=== PATIENT | male | born 1945 | race Caucasian/White ===

== ENCOUNTER 2019-08-13 05:52 | Day surgery (SDC) | payer MEDICARE ==
[~2019-08-13] VITALS: Ht 180.3 cm; Wt 109.8 kg
[2019-08-13] VITALS (18 sets, daily range): BP systolic 120–160; BP diastolic 61–73
[~2019-08-13 05:52] MED LIST: AMLO10TA PO; ASPI-1264 PO; CHOL500050 PO; EZET1TAB33 PO; FISH1CAP15 PO; FLO0.4C PO; GABA-532 PO; GLUC1CAP17 PO; LEVO125T PO; METO100T7 PO; MULT-1085 PO; NAPR-996 PO; NIA500ERT PO; NITR0.4T48 SL; OMEP40CA13 PO; TRAZ-251 PO
[2019-08-13] MEDS ORDERED: normal saline 1,000 ML IV SCH (06:20)
[2019-08-13] MEDS ORDERED: diphenhydrAMINE 25mg capsule PO PRN (06:20)
[2019-08-13] MEDS ORDERED: LORazepam 0.5 MG tablet PO PRN (06:20)
[2019-08-13] MEDS ORDERED: GLUC100017 PO (06:22)
[2019-08-13 06:41] LABS: BASOPHILS # (AUTO) 0.1 X10'3 (0-0.2); EOSINOPHILS # (AUTO) 0.3 X10'3 (0-0.9); EOSINOPHILS % (AUTO) 4.1 % (0-6); HEMATOCRIT 44.8 % (42.0-52.0); LYMPHOCYTES # (AUTO) 2.1 X10'3 (1.1-4.8); LYMPHOCYTES % (AUTO) 29.3 % (21-51); MEAN CORPUSCULAR HEMOGLOBIN 32.5 PG (27.0-31.0); MEAN CORPUSCULAR HGB CONC 33.6 g/dL (33.0-36.5); MEAN CORPUSCULAR VOLUME 96.8 FL (78-98); MONOCYTES # (AUTO) 0.7 X10'3 (0-0.9); MONOCYTES % (AUTO) 10.1 % (2-12); NEUTROPHILS # (AUTO) 4.1 X10'3 (1.8-7.7); NEUTROPHILS % (AUTO) 55.5 % (42-75); PLATELET COUNT 148 X10'3 (140-440); RED BLOOD COUNT 4.63 X10'6 (4.70-6.10); RED CELL DISTRIBUTION WIDTH 13.8 % (11.5-14.5); WHITE BLOOD COUNT 7.3 X10'3 (4.5-11.0)
[2019-08-13 06:57] LABS: PARTIAL THROMBOPLASTIN TIME 28 SECONDS (22-32)
[2019-08-13 06:59] LABS: ALANINE AMINOTRANSFERASE 24 U/L (12-78); ALBUMIN 3.7 G/DL (3.4-5.0); ALBUMIN/GLOBULIN RATIO 1.1 (1.1-1.5); ALKALINE PHOSPHATASE 75 IU/L (46-116); ANION GAP 8 (8-16); ASPARTATE AMINO TRANSFERASE 20 U/L (10-37); BILIRUBIN,TOTAL 0.4 MG/DL (0.1-1.0); BLOOD UREA NITROGEN 15 MG/DL (7-18); BUN/CREATININE RATIO 19.5 (5.4-32.0); CALCIUM 8.6 MG/DL (8.5-10.1); CHLORIDE 109 MMOL/L (99-107); CHOL/HDL RATIO 2.4 (0.00-4.99); CHOLESTEROL 132 MG/DL (0-200); CREATININE 0.77 MG/DL (0.60-1.10); GLUCOSE 99 MG/DL (70-104); HDL CHOLESTEROL 55 MG/DL (35-60); LDL CHOLESTEROL 57 MG/DL (50-100); POTASSIUM 4.1 MMOL/L (3.5-5.1); SODIUM 144 MMOL/L (135-145); TOTAL CARBON DIOXIDE 26.7 MMOL/L (24-32); TRIGLYCERIDES 91 MG/DL (20-135); eGFR > 90 ML/MIN
[2019-08-13] MEDS ORDERED: midazolam 2 mg/2 ml injection ONE ×2 (07:30→08:52)
[2019-08-13] MEDS ORDERED: nitroGLYCERIN-Tridil 50MG/D5W 250 ML IV ONE (07:30)
[2019-08-13] MEDS ORDERED: fentaNYL/PF 50MCG/1 ML 2ML syringe ONE ×2 (07:30→09:12)
[2019-08-13] MEDS ORDERED: iohexol 350MG/ML 100ml bottle IV ONE ×2 (07:31→08:42)
[2019-08-13] MEDS ORDERED: LIDOcaine 1% (10mg/ml)w/preservative injection 20ml MDV ONE (07:31)
[2019-08-13] MEDS ORDERED: heparin 1,000unit/ml 10ml vial 10 ML ONE (07:31)
[2019-08-13] MEDS ORDERED: iohexol 350 MG/ML 50ML vial IV ONE (07:31)
[2019-08-13] MEDS ORDERED: heparin 25,000 UNIT/250ml bag 250 ML IV ONE (08:57)
[2019-08-13] MEDS ORDERED: verapamil 2.5 mg/ml inj IV ONE (09:07)
[2019-08-13] MEDS ORDERED: clopidogrel 300mg tablet ONE (09:20)
--- NOTE | 2019-08-13 10:00 | NUR ---
Pt returned from [employer], VSS. Art line/sheath in place. Report from Salima PEDROZA.
[2019-08-13 10:05] LABS: ISTAT HGB ART 13.9 g/dl (14.0-18.0); ISTAT Hct ART 41 %PCV (42-52); ISTAT O2 SATURATION ARTERIAL 99 % (95-98); ISTAT SOURCE ART
[2019-08-13] MEDS ORDERED: OXAZEpam 15mg capsule PO PRN (10:15)
[2019-08-13] MEDS ORDERED: HYDROcodone/acetaminophen 10/325mg tab PO PRN ×2 (10:15)
[2019-08-13] MEDS ORDERED: aspirin 325mg tablet PO ONE (10:15)
[2019-08-13] MEDS ORDERED: proCHLORperazine 10 MG/2 ml inj IV PRN (10:15)
[2019-08-13] MEDS ORDERED: cyclobenzaprine 10mg tablet PO PRN (10:15)
[2019-08-13] MEDS ORDERED: CLOPIDOGREL BISULFATE 300MG TAB PO ONE (10:15)
[2019-08-13] MEDS ORDERED: acetaminophen 325mg tablet PO PRN (10:15)
[2019-08-13] MEDS ORDERED: magnesium hydroxide 30ml (MOM) UD suspension PO PRN (10:15)
[2019-08-13] MEDS ORDERED: mag hydrox/Alum hydrox/simeth 30ml oral suspension PO ONE (10:20)
[2019-08-13] MEDS ORDERED: morphine 2 MG/ML inj. syringe IV PRN (10:20)
--- NOTE | 2019-08-13 11:45 | NUR ---
clinical lab assistantsiva Dominguez RN at bedside here to DC sheath. Bleeding noted from Abdifatah moreno MD called by Rosenda Goyal RN, orders received for STAT H/H. Addendum: 08/13/19 at 1416 by Swati Mallory RN VSS Bp 120/84. HR 61
[2019-08-13 12:01] LABS: MEAN CORPUSCULAR HEMOGLOBIN 32.4 PG (27.0-31.0); PLATELET COUNT 138 X10'3 (140-440)
[2019-08-13 12:03] LABS: BASOPHILS # (AUTO) 0.1 X10'3 (0-0.2); BASOPHILS % (AUTO) 1.1 % (0-1); EOSINOPHILS # (AUTO) 0.2 X10'3 (0-0.9); EOSINOPHILS % (AUTO) 2.5 % (0-6); HEMATOCRIT 42.7 % (42.0-52.0); HEMOGLOBIN 14.4 g/dl (14.0-17.9); LYMPHOCYTES # (AUTO) 1.8 X10'3 (1.1-4.8); LYMPHOCYTES % (AUTO) 22.7 % (21-51); MEAN CORPUSCULAR HGB CONC 33.7 g/dL (33.0-36.5); MEAN CORPUSCULAR VOLUME 96.1 FL (78-98); MEAN PLATELET VOLUME 8.5 FL (7.4-10.4); MONOCYTES # (AUTO) 0.6 X10'3 (0-0.9); MONOCYTES % (AUTO) 7.4 % (2-12); NEUTROPHILS # (AUTO) 5.2 X10'3 (1.8-7.7); NEUTROPHILS % (AUTO) 66.3 % (42-75); RED BLOOD COUNT 4.44 X10'6 (4.70-6.10); RED CELL DISTRIBUTION WIDTH 13.8 % (11.5-14.5); WHITE BLOOD COUNT 7.9 X10'3 (4.5-11.0)
--- NOTE | 2019-08-13 13:00 | NUR ---
Report given to Dr. Bain by Rosenda PEDROZA, H/H juan daniel, VSS. Orders to continue to DC art/venous line per Alberto PEDROZA.
--- NOTE | 2019-08-13 14:50 | NUR ---
Report given to Bailey PEDROZA.
--- NOTE | 2019-08-13 15:00 | NUR ---
recieved report and pt from Swati RN, pt resting in room 1326B, denies pain, has eaten burrito, vs stable, to tx to [facility], home to [place] tomorrow 08-13. right groin soft and palpable without pain, femstop in place, pulses palpable ++.
[2019-08-13] MEDS ORDERED: docusate sod 100mg capsule PO SCH (20:00)
[2019-08-14] MEDS ORDERED: clopidogrel 75mg tablet PO SCH (08:00)
[2019-08-14] MEDS ORDERED: aspirin 325mg tablet PO SCH (08:30)
== END 2019-08-13 19:00 | disposition home or self-care (01) ==
LOC: SSTAY O 05:52
PROVIDERS: ATTEND Internal Medicine Cardiovascular Disease
DX: I25.810 Atherosclerosis of coronary artery bypass graft(s) without angina pectoris (principal); I25.10 Atherosclerotic heart disease of native coronary artery without angina pectoris; R06.02 Shortness of breath; R94.30 Abnormal result of cardiovascular function study, unspecified; I10 Essential (primary) hypertension; Z95.1 Presence of aortocoronary bypass graft; Z72.0 Tobacco use; E03.9 Hypothyroidism, unspecified; G47.33 Obstructive sleep apnea (adult) (pediatric); J44.9 Chronic obstructive pulmonary disease, unspecified; R53.83 Other fatigue; E78.5 Hyperlipidemia, unspecified
CPT/HCPCS: 36415; 76937; 80053; 80061; 82803; 85014; 85025; 85347; 85610; 85730; 93005; 93461; C1769; C1874; C9604; J1644; J2001; J2250; J3010; J7030; J7040; Q0163; Q9967; 99152; 99153; A4620; C1751; J3490